=== PATIENT | female | born 1995 | race Caucasian/White ===

== ENCOUNTER → 2017-04-19 | Outpatient (REF) | payer OTHER | LOC: M WHC 16:44 | PROVIDERS: ATTEND Family Medicine | DX: Z11.3 Encounter for screening for infections with a predominantly sexual mode of transmission (principal) ==

== ENCOUNTER → 2018-04-16 | Outpatient (REF) | payer OTHER | LOC: M SFHCWAGY 09:22 | DX: Z12.4 Encounter for screening for malignant neoplasm of cervix (principal) ==